=== PATIENT | female | born 1980 | race Caucasian/White ===

== ENCOUNTER 2017-05-27 16:23 | Emergency (ER) | payer MEDICARE, OTHER ==
[~2017-05-27] VITALS: Ht 165.1 cm; Wt 75.8 kg
[~2017-05-27 16:23] MED LIST: 5-Htp50 MG PO; ALAVERT; ALBU90I INH; ALBU90OI INH; AMIT10 PO; AMIT50 PO; AMOCLA500 PO; AMOCLA875 PO; AMOX1XR PO; AMOX250 PO; AMOX500 PO; ANTOXYBENA AU; ANTOXYBENA OT; ARIP20; ARIP20 PO; ATIVAN; AXERT; AZIT250 PO; AZIT500 PO; Amoxicillin500 MG PO; Ativan1 MG PO; BELPTAB PO; BENADRYL25 MG PO; BENTYL PO; BENZ100A PO; BUSP15 PO; BUTASPCAF PO; Bactrim Ds Tab1 EACH PO; Bentyl20 MG PO; CEPH500 PO; CETI10 PO; CHLO500 PO; CIME300 PO; CINNAMON PO; CIPR500 PO; CLAR500 PO; CLARITIN; CLIN300 PO; CLON.1 PO; CLON.2 PO; CLON1 PO; CLONIDINE PO; CRUTCH3 USE; CYAN500; CYCL10 PO; CYMBALTA; DIAZ5 PO; DIPATR PO; DOXY100 PO; DULO30 PO; DULO60 PO; FERR325 PO; FLUC150A PO; FLUT.05NI; Flonase 0.05% N16 GM; GABA100 PO; GABA300 PO; GUAPSEER PO; HYDACE5; HYDACE5 PO; HYDGUAL120 PO; HYDPAM25; HYDPAM25 PO; HYDPAM50 PO; HYOS.125 SL; Hair, Skin & N1 EACH PO; IBUP600 PO; IBUP800 PO; IRON; LANS30EC PO; LEVE500 PO; LITH300C PO; LITHIUM OROTATE PO; LOPE2C PO; LORA1 PO; MAGNESIUM; META800; META800 PO; METCAR500 PO; METCAR750; METF500 PO; METPHE20 PO; METPHE5 PO; METPRE4DP PO; MILN100T PO; MIRT30 PO; MOME.1TC TOP; MULVITA; MULVITMIND PO; MULVITMINE; MULVITMINF PO; MUPI2TC TOP; MUPI2TO TOP; NAPR500 PO; NAPR550 PO; NEOPOLHCSU OT; NITR100CA PO; NORETHTP; NUVA RING; NYST100TC TOP; Naprosyn500 MG PO; Nasonex17 GM; OLAN10; OLAN5; OLOP.1OPSO OD; ONDA4ODT MM; OXYACE5T PO; OXYC5; PARO20; PARO20 PO; PENVK500 PO; PHENA200 PO; PRAZ1 PO; PRAZ2 PO; PRED10 PO; PRED20 PO; PREG100 PO; PREG75 PO; PROACE100 PO; PROC10 PO; PROM25 PO; PROM25S PR; PROP10 PO; PSEU30 PO; Pseudoephedrine30 MG PO; RISP2 PO; RXANTBENOT AU; RXCLIN PO; RXCYCL10 PO; RXDIPATR PO; RXHYDACE PO; RXHYDGUAS PO; RXLORA1 PO; RXNAPNA550 PO; RXPHEN200 PO; RXPROM25 PO; RXTRAM50 PO; SACC250C PO; SERT100 PO; STOMUL PO; SUDOGEST SINUS1 EACH PO; SULTRIDS PO; TOPI100; TOPI100 PO; TOPI25; TRAM50 PO; TRAZ100; TRAZ100 PO; TRIA80TC TOP; Tylenol325 MG PO; VICODIN 5-3001 EACH PO; VIT; Vibramycin100 MG PO; ZIPR80 PO; ZOLM2.5 PO; ZOLP10 PO; ZOLP12.5 PO; ZOLP5 PO; Zanaflex4 MG PO; Zithromax250 MG PO; Zofran Odt4 MG PO; Zofran Odt4 MG SL; Zofran8 MG PO; [UNRECOGNIZED DRUG - CODE]; [UNRECOGNIZED DRUG - OTHER]; [UNRECOGNIZED DRUG - OTHER] INH; [UNRECOGNIZED DRUG - OTHER] PO
[2017-05-27 19:44] LABS: BASOPHILS ABSOLUTE AUTO 0.06 K/mm3 (0.00-0.23); BASOPHILS PERCENT AUTO 1 % (0-2); EOSINOPHILS ABSOLUTE AUTO 0.16 K/mm3 (0.00-0.68); EOSINOPHILS PERCENT AUTO 2 % (0-6); Hemoglobin 14.2 g/dL (11.5-16.0); IMMATURE GRAN ABSOLUTE AUTO 0.03 K/mm3 (0.00-0.10); IMMATURE GRAN PERCENT AUTO 0 % (0-1); LYMPHOCYTES ABSOLUTE AUTO 4.34 K/mm3 (0.84-5.20); LYMPHOCYTES PERCENT AUTO 40 % (21-46); MONOCYTES ABSOLUTE AUTO 0.61 K/mm3 (0.16-1.47); MONOCYTES PERCENT AUTO 6 % (4-13); Mean Corpuscular HGB 29.2 pg (26.0-34.0); Mean Corpuscular HGB Conc 34.6 g/dL (31.5-36.5); Mean Corpuscular Volume 84 fL (80-100); Mean Platelet Volume 10.1 fL (9.1-12.4); NEUTROPHILS ABSOLUTE AUTO 5.57 K/mm3 (1.96-9.15); NEUTROPHILS PERCENT AUTO 52 % (41-73); Platelet Count 305 K/mm3 (150-400); RDW Coefficient Variation 11.9 % (11.7-14.2); RDW Standard Deviation 35.9 fL (35.1-46.3); Red Blood Cell Count 4.87 M/mm3 (3.80-5.20); White Blood Cell Count 10.77 K/mm3 (4.00-11.30)
[2017-05-27 20:02] LABS: Alanine Aminotransfer (ALT/SGP 75 U/L (12-78); Albumin/Globulin Ratio 0.9 (0.8-1.8); Alk Phos 90 U/L (50-136); Anion Gap 14 mmol/L (6-16); Aspartate Aminotrans (AST/SGOT 49 U/L (12-37); Bilirubin, Total 0.6 mg/dL (0.1-1.0); Blood Urea Nitrogen 13 mg/dL (8-24); Bun/Creatinine Ratio 25.4 (12.0-20.0); CO2, Blood 20 mmol/L (21-32); Calcium, Blood 9.8 mg/dL (8.5-10.1); Chloride, Blood 102 mmol/L (98-108); Creatinine, Blood 0.51 mg/dL (0.40-1.00); Globulin, Blood 4.6 g/dL (2.2-4.0); Glomerular Filtration Rate >60 (60-); Glucose, Blood 300 mg/dL (70-99); Potassium, Blood 3.9 mmol/L (3.5-5.5); Sodium, Blood 136 mmol/L (136-145); Total Protein, Blood 8.6 g/dL (6.4-8.2)
[2017-05-27] MEDS ORDERED: INSULANPEN SC (20:42)
[2017-05-27] MEDS ORDERED: Hydroxyzine HCl50 MG PO (20:43)
[2017-05-27] MEDS ORDERED: TIZANIDINE HCL4 MG PO (20:44)
[2017-05-27] MEDS ORDERED: GABA100 PO (20:45)
[2017-05-27] MEDS ORDERED: METPHE20 PO (20:45)
[2017-08-12] MEDS ORDERED: METF500 (22:27)
== END 2017-05-27 23:34 | disposition home or self-care (01) ==
LOC: ER 16:23
PROVIDERS: Physician Assistant
DX: J11.1 Influenza due to unidentified influenza virus with other respiratory manifestations (principal); R73.9 Hyperglycemia, unspecified; G40.909 Epilepsy, unspecified, not intractable, without status epilepticus; F43.10 Post-traumatic stress disorder, unspecified; Z86.14 Personal history of Methicillin resistant Staphylococcus aureus infection; Z79.4 Long term (current) use of insulin; Z91.018 Allergy to other foods; Z88.8 Allergy status to other drugs, medicaments and biological substances; Z79.899 Other long term (current) drug therapy; Z87.891 Personal history of nicotine dependence; Z98.890 Other specified postprocedural states
CPT/HCPCS: 71046; 80053; 85025; 99283

== ENCOUNTER 2018-04-23 19:00 | Emergency (ER) | payer MEDICARE, OTHER ==
[~2018-04-23] VITALS: Ht 165.1 cm; Wt 78.0 kg
[~2018-04-23 19:00] MED LIST changes: +Hydroxyzine HCl50 MG PO; +INSULANPEN SC; +METF500; +TIZANIDINE HCL4 MG PO
[2018-04-23] MEDS ORDERED: ALBU90OI INH (21:59)
== END 2018-04-23 22:13 | disposition home or self-care (01) ==
LOC: ER 19:00
DX: J45.901 Unspecified asthma with (acute) exacerbation (principal); Z88.8 Allergy status to other drugs, medicaments and biological substances; Z79.899 Other long term (current) drug therapy; Z79.4 Long term (current) use of insulin; F43.10 Post-traumatic stress disorder, unspecified; G40.909 Epilepsy, unspecified, not intractable, without status epilepticus; Z87.891 Personal history of nicotine dependence
CPT/HCPCS: 99283

== ENCOUNTER 2018-07-07 16:23 | Emergency (ER) | payer MEDICARE, OTHER ==
[~2018-07-07] VITALS: Ht 165.1 cm; Wt 81.7 kg
[2018-07-07 16:56] LABS: BASOPHILS ABSOLUTE AUTO 0.06 K/mm3 (0.00-0.23); BASOPHILS PERCENT AUTO 1 % (0-2); EOSINOPHILS ABSOLUTE AUTO 0.15 K/mm3 (0.00-0.68); EOSINOPHILS PERCENT AUTO 1 % (0-6); Hematocrit 42.5 % (33.0-51.0); Hemoglobin 14.3 g/dL (11.5-16.0); IMMATURE GRAN ABSOLUTE AUTO 0.02 K/mm3 (0.00-0.10); IMMATURE GRAN PERCENT AUTO 0 % (0-1); LYMPHOCYTES ABSOLUTE AUTO 5.31 K/mm3 (0.84-5.20); LYMPHOCYTES PERCENT AUTO 47 % (21-46); MONOCYTES ABSOLUTE AUTO 0.51 K/mm3 (0.16-1.47); MONOCYTES PERCENT AUTO 5 % (4-13); Mean Corpuscular HGB 29.2 pg (26.0-34.0); Mean Corpuscular HGB Conc 33.6 g/dL (31.5-36.5); Mean Corpuscular Volume 87 fL (80-100); NEUTROPHILS ABSOLUTE AUTO 5.36 K/mm3 (1.96-9.15); NEUTROPHILS PERCENT AUTO 47 % (41-73); Platelet Count 370 K/mm3 (150-400); RDW Coefficient Variation 11.5 % (11.7-14.2); RDW Standard Deviation 36.2 fL (35.1-46.3); White Blood Cell Count 11.41 K/mm3 (4.00-11.30)
[2018-07-07 17:15] LABS: Alanine Aminotransfer (ALT/SGP 67 U/L (12-78); Albumin, Blood 4.2 g/dL (3.4-5.0); Albumin/Globulin Ratio 0.9 (0.8-1.8); Alk Phos 87 U/L (50-136); Anion Gap 7 mmol/L (6-16); Aspartate Aminotrans (AST/SGOT 43 U/L (12-37); Bilirubin, Total 0.7 mg/dL (0.1-1.0); Blood Urea Nitrogen 17 mg/dL (8-24); Bun/Creatinine Ratio 23.2 (12.0-20.0); CO2, Blood 23 mmol/L (21-32); Calcium, Blood 9.8 mg/dL (8.5-10.1); Chloride, Blood 108 mmol/L (98-108); Creatinine, Blood 0.73 mg/dL (0.40-1.00); Globulin, Blood 4.5 g/dL (2.2-4.0); Glomerular Filtration Rate >60 (60-); Glucose, Blood 132 mg/dL (70-99); Potassium, Blood 3.4 mmol/L (3.5-5.5); Sodium, Blood 138 mmol/L (136-145); Total Protein, Blood 8.7 g/dL (6.4-8.2)
[2018-07-07 18:08] LABS: Source, Urine Clean Catch
[2018-07-07 18:16] LABS: Bilirubin, Urine Neg (Neg); Blood, Urine Neg (Neg); Glucose Qualitative, Urine Neg (Neg); Ketones, Urine Neg (Neg); Leukocyte Esterase, Urine 1+ (Neg); Nitrite, Urine Neg (Neg); Protein, Urine Neg (Neg); Urobilinogen, Urine NORM (Normal)
[2018-07-07 18:27] LABS: Appearance, Urine Clear (Clear); Color, Urine Yellow (P-Yellow)
[2018-07-07 18:28] LABS: Bacteria Few /hpf; Red Blood Cells, Urine Not Seen /hpf (0-2); Squamous Epithelial Cells Few /hpf (Few)
[2018-07-07] MEDS ORDERED: TOPI50 PO ×2 (19:16)
[2018-07-07] MEDS ORDERED: Naltrexone HCl50 MG PO (19:17)
[2018-07-07] MEDS ORDERED: SLIDING SCALE INSULI (19:18)
== END 2018-07-07 20:10 | disposition home or self-care (01) ==
LOC: ER 16:23
PROVIDERS: Emergency Medicine
DX: K90.0 Celiac disease (principal); Z88.8 Allergy status to other drugs, medicaments and biological substances; Z91.018 Allergy to other foods; Z79.899 Other long term (current) drug therapy; Z79.4 Long term (current) use of insulin; F43.10 Post-traumatic stress disorder, unspecified; G40.909 Epilepsy, unspecified, not intractable, without status epilepticus; Z87.891 Personal history of nicotine dependence
CPT/HCPCS: 36415; 76830; 76856; 80053; 81001; 81025; 83690; 85025; 87086; 96374; 96375; 99284-25; J1885; J3010

== ENCOUNTER 2018-09-01 14:51 | Emergency (ER) | payer MEDICARE, OTHER ==
[~2018-09-01] VITALS: Ht 165.1 cm; Wt 82.0 kg
[~2018-09-01 14:51] MED LIST changes: +Naltrexone HCl50 MG PO; +SLIDING SCALE INSULI; +TOPI50 PO
[2018-09-01] MEDS ORDERED: Bactrim Ds Tab1 EACH PO (16:11)
[2018-09-01] MEDS ORDERED: CEPH500 PO (16:11)
== END 2018-09-01 16:21 | disposition home or self-care (01) ==
LOC: ER 14:51
DX: L02.31 Cutaneous abscess of buttock (principal); G40.909 Epilepsy, unspecified, not intractable, without status epilepticus; Z87.891 Personal history of nicotine dependence
CPT/HCPCS: 99283

== ENCOUNTER 2018-09-12 19:17 | Emergency (ER) | payer OTHER, MEDICARE ==
[~2018-09-12] VITALS: Ht 165.1 cm; Wt 79.4 kg
[2018-09-12] MEDS ORDERED: HYDPAM25 PO (19:56)
[2018-09-12] MEDS ORDERED: RIZATRIPTAN10 M2 PO (19:57)
== END 2018-09-12 22:00 | disposition home or self-care (01) ==
LOC: ER 19:17
DX: R51 Headache (principal); M54.2 Cervicalgia; V43.52XA Car driver injured in collision with other type car in traffic accident, initial encounter; Z91.018 Allergy to other foods; Z88.8 Allergy status to other drugs, medicaments and biological substances; Z79.899 Other long term (current) drug therapy; Z79.4 Long term (current) use of insulin; F43.10 Post-traumatic stress disorder, unspecified; G40.909 Epilepsy, unspecified, not intractable, without status epilepticus; Z87.891 Personal history of nicotine dependence
CPT/HCPCS: 96361; 96374; 96375; 99284-25; J1200; J2765; J7030

== ENCOUNTER 2019-04-13 10:56 | Emergency (ER) | payer MEDICARE, OTHER ==
[~2019-04-13] VITALS: Ht 165.1 cm; Wt 81.7 kg
[~2019-04-13 10:56] MED LIST changes: +RIZATRIPTAN10 M2 PO
[2019-04-13] MEDS ORDERED: FLUT1DIS2 INH (11:13)
[2019-04-13] MEDS ORDERED: NOVOLOG FL100 UNIT/1 SC (11:14)
[2019-04-13] MEDS ORDERED: Nuvaring Vagin1 EACH VAG (11:15)
[2019-04-13] MEDS ORDERED: Zolpidem Tartrat5 MG PO (11:15)
[2019-04-13] MEDS ORDERED: JARDIANCE25 MG PO (11:16)
[2019-04-13] MEDS ORDERED: AMLODIPINE BESYL5 MG PO (11:16)
[2019-04-13] MEDS ORDERED: Flovent 110 MCG12 GM INH (11:17)
[2019-04-13] MEDS ORDERED: Sudogest60 MG PO (13:16)
== END 2019-04-13 13:30 | disposition home or self-care (01) ==
LOC: ER 10:56
DX: J06.9 Acute upper respiratory infection, unspecified (principal); F43.10 Post-traumatic stress disorder, unspecified; G40.909 Epilepsy, unspecified, not intractable, without status epilepticus; J45.909 Unspecified asthma, uncomplicated; E11.9 Type 2 diabetes mellitus without complications; Z87.891 Personal history of nicotine dependence; Z88.8 Allergy status to other drugs, medicaments and biological substances; Z91.018 Allergy to other foods; Z79.899 Other long term (current) drug therapy; Z79.4 Long term (current) use of insulin
CPT/HCPCS: 71046; 94640; 99283-25

== ENCOUNTER 2019-05-07 08:42 | Emergency (ER) | payer MEDICARE, OTHER ==
[~2019-05-07] VITALS: Ht 165.1 cm; Wt 78.9 kg
[~2019-05-07 08:42] MED LIST changes: +AMLODIPINE BESYL5 MG PO; +FLUT1DIS2 INH; +Flovent 110 MCG12 GM INH; +JARDIANCE25 MG PO; +NOVOLOG FL100 UNIT/1 SC; +Nuvaring Vagin1 EACH VAG; +Sudogest60 MG PO; +Zolpidem Tartrat5 MG PO
[2019-05-07] MEDS ORDERED: BREO ELLIPTA 21 EACH (09:08)
[2019-05-07 09:18] LABS: Source, Urine Clean Catch
[2019-05-07 09:24] LABS: Bilirubin, Urine Neg (Neg); Blood, Urine Neg (Neg); Glucose Qualitative, Urine 4+ (Neg); Ketones, Urine Neg (Neg); Leukocyte Esterase, Urine 1+ (Neg); Nitrite, Urine Pos (Neg); Protein, Urine Neg (Neg); Specific Gravity, Urine 1.005 (1.003-1.022); Urobilinogen, Urine NORM (Normal)
[2019-05-07 09:29] LABS: Color, Urine Yellow (P-Yellow)
[2019-05-07 09:30] LABS: Appearance, Urine Hazy (Clear)
[2019-05-07 09:31] LABS: Red Blood Cells, Urine 0-2 /hpf (0-2)
[2019-05-07 09:32] LABS: Bacteria Mod /hpf; Squamous Epithelial Cells Few /hpf (Few)
[2019-05-07] MEDS ORDERED: Pyridium200 MG PO (10:09)
[2019-05-07] MEDS ORDERED: Macrobid 100 M100 MG PO (10:09)
== END 2019-05-07 10:14 | disposition home or self-care (01) ==
LOC: ER 08:42
PROVIDERS: Physician Assistant
DX: N39.0 Urinary tract infection, site not specified (principal); G40.909 Epilepsy, unspecified, not intractable, without status epilepticus; J45.909 Unspecified asthma, uncomplicated; E11.9 Type 2 diabetes mellitus without complications; Z87.891 Personal history of nicotine dependence; Z91.018 Allergy to other foods; Z91.011 Allergy to milk products; Z88.8 Allergy status to other drugs, medicaments and biological substances; Z79.899 Other long term (current) drug therapy; Z79.4 Long term (current) use of insulin
CPT/HCPCS: 81001; 81025; 87086; 99283

== ENCOUNTER 2019-09-06 10:05 | Emergency (ER) | payer MEDICARE, OTHER ==
[~2019-09-06] VITALS: Ht 165.1 cm; Wt 78.9 kg
[~2019-09-06 10:05] MED LIST changes: +BREO ELLIPTA 21 EACH; +Macrobid 100 M100 MG PO; +Pyridium200 MG PO
== END 2019-09-06 12:27 | disposition home or self-care (01) ==
LOC: ER 10:05
DX: M25.511 Pain in right shoulder (principal); E11.9 Type 2 diabetes mellitus without complications; G40.909 Epilepsy, unspecified, not intractable, without status epilepticus; Z91.018 Allergy to other foods; Z91.011 Allergy to milk products; Z88.8 Allergy status to other drugs, medicaments and biological substances; Z79.899 Other long term (current) drug therapy; Z79.4 Long term (current) use of insulin; Z87.891 Personal history of nicotine dependence
CPT/HCPCS: 73030; 99283-25

== ENCOUNTER 2020-02-04 09:05 | Emergency (ER) | payer MEDICARE, OTHER ==
[~2020-02-04] VITALS: Ht 165.1 cm; Wt 78.0 kg
[~2020-02-04 09:05] MED LIST changes: +KEFLEX250 M1 PO
[2020-02-04] MEDS ORDERED: Bactrim Ds Tab1 EACH PO (09:19)
[2020-02-04 09:34] LABS: Source, Urine Clean Catch
[2020-02-04 09:37] LABS: Appearance, Urine Clear (Clear); Blood, Urine Neg (Neg); Color, Urine Yellow (P-Yellow); Glucose Qualitative, Urine 4+ (Neg); Ketones, Urine Neg (Neg); Leukocyte Esterase, Urine 1+ (Neg); Nitrite, Urine Pos (Neg); Protein, Urine Neg (Neg); Urobilinogen, Urine 1+ (Normal)
[2020-02-04 10:10] LABS: Bilirubin, Urine 1+ (Neg)
[2020-02-04 10:11] LABS: Red Blood Cells, Urine 0-2 /hpf (0-2); Squamous Epithelial Cells Rare /hpf (Few)
[2020-02-04 10:12] LABS: Bacteria Few /hpf
== END 2020-02-04 09:30 | disposition home or self-care (01) ==
LOC: ER 09:05
PROVIDERS: Emergency Medicine
DX: N39.0 Urinary tract infection, site not specified (principal); G40.909 Epilepsy, unspecified, not intractable, without status epilepticus; J45.909 Unspecified asthma, uncomplicated; Z87.891 Personal history of nicotine dependence; Z79.899 Other long term (current) drug therapy; Z79.4 Long term (current) use of insulin; Z79.3 Long term (current) use of hormonal contraceptives; Z91.02 Food additives allergy status; Z88.8 Allergy status to other drugs, medicaments and biological substances
CPT/HCPCS: 81001; 87086; 99283; A9270-GY

== ENCOUNTER 2021-03-11 07:20 | Emergency (ER) | payer MEDICARE, OTHER ==
[~2021-03-11] VITALS: Ht 165.1 cm; Wt 68.0 kg
[2021-03-11 08:50] LABS: Source, Urine Clean Catch
[2021-03-11 08:53] LABS: Appearance, Urine Clear (Clear); Bilirubin, Urine Neg (Neg); Blood, Urine 5+ (Neg); Color, Urine Yellow (P-Yellow); Glucose Qualitative, Urine 4+ (Neg); Ketones, Urine Neg (Neg); Leukocyte Esterase, Urine 3+ (Neg); Nitrite, Urine Neg (Neg); Protein, Urine 3+ (Neg); Urobilinogen, Urine NORM (Normal)
[2021-03-11 08:56] LABS: BASOPHILS ABSOLUTE AUTO 0.07 K/mm3 (0.00-0.23); BASOPHILS PERCENT AUTO 1 % (0-2); EOSINOPHILS PERCENT AUTO 2 % (0-6); Hematocrit 44.3 % (33.0-51.0); Hemoglobin 14.7 g/dL (11.5-16.0); IMMATURE GRAN ABSOLUTE AUTO 0.03 K/mm3 (0.00-0.10); IMMATURE GRAN PERCENT AUTO 0 % (0-1); LYMPHOCYTES ABSOLUTE AUTO 3.62 K/mm3 (0.84-5.20); LYMPHOCYTES PERCENT AUTO 31 % (21-46); MONOCYTES ABSOLUTE AUTO 0.73 K/mm3 (0.16-1.47); MONOCYTES PERCENT AUTO 6 % (4-13); Mean Corpuscular HGB 28.5 pg (26.0-34.0); Mean Corpuscular HGB Conc 33.2 g/dL (31.5-36.5); Mean Corpuscular Volume 86 fL (80-100); Mean Platelet Volume 9.9 fL (9.1-12.4); NEUTROPHILS ABSOLUTE AUTO 6.88 K/mm3 (1.96-9.15); NEUTROPHILS PERCENT AUTO 60 % (41-73); Platelet Count 313 K/mm3 (150-400); RDW Coefficient Variation 12.1 % (11.7-14.2); RDW Standard Deviation 38.4 fL (35.1-46.3); Red Blood Cell Count 5.15 M/mm3 (3.80-5.20); White Blood Cell Count 11.53 K/mm3 (4.00-11.30)
[2021-03-11 09:09] LABS: Alanine Aminotransfer (ALT/SGP 21 U/L (12-78); Alk Phos 71 U/L (50-136); Anion Gap 8 mmol/L (6-16); Aspartate Aminotrans (AST/SGOT 14 U/L (12-37); Bilirubin, Direct <0.1 mg/dL (0.0-0.3); Bilirubin, Indirect Unable to Calculate mg/dL (0.1-0.7); Bilirubin, Total 0.3 mg/dL (0.1-1.0); Blood Urea Nitrogen 18 mg/dL (8-24); Bun/Creatinine Ratio 21.1 (12.0-20.0); CO2, Blood 24 mmol/L (21-32); Calcium, Blood 9.5 mg/dL (8.5-10.1); Chloride, Blood 109 mmol/L (98-108); Creatinine, Blood 0.85 mg/dL (0.40-1.00); Globulin, Blood 4.2 g/dL (2.2-4.0); Glomerular Filtration Rate >60 (60-); Glucose, Blood 133 mg/dL (70-99); Potassium, Blood 3.8 mmol/L (3.5-5.5); Sodium, Blood 141 mmol/L (136-145); Total Protein, Blood 8.2 g/dL (6.4-8.2)
[2021-03-11 09:10] LABS: Amorphous Light (0-Heavy); Bacteria Mod /hpf; Red Blood Cells, Urine 50-100 /hpf (0-2); Squamous Epithelial Cells Many /hpf (Few)
[2021-03-11] MEDS ORDERED: CEFU500T30 PO (10:39)
[2021-03-11] MEDS ORDERED: ONDA4 PO (10:39)
== END 2021-03-11 11:08 | disposition home or self-care (01) ==
LOC: ER 07:20
PROVIDERS: Student in an Organized Health Care Education/Training Program
DX: N12 Tubulo-interstitial nephritis, not specified as acute or chronic (principal); N30.91 Cystitis, unspecified with hematuria; Z88.8 Allergy status to other drugs, medicaments and biological substances; Z79.899 Other long term (current) drug therapy; Z91.018 Allergy to other foods; Z79.4 Long term (current) use of insulin; F43.10 Post-traumatic stress disorder, unspecified; G40.909 Epilepsy, unspecified, not intractable, without status epilepticus; Z87.891 Personal history of nicotine dependence
CPT/HCPCS: 36415; 74176; 80048; 80076; 81001; 81025; 83690; 85025; 87086; 96365; 96375; 99284-25; J0696; J1885; J2405; J7030

== ENCOUNTER 2021-08-26 13:01 | Emergency (ER) | payer MEDICARE, OTHER ==
[~2021-08-26] VITALS: Ht 172.7 cm; Wt 79.4 kg
[~2021-08-26 13:01] MED LIST changes: +BREO ELLIPTA 21 EAC1 IH; +CEFU500T30 PO; +METOCLOPRAMIDE H PO; +ONDA4 PO
== END 2021-08-26 13:38 | disposition home or self-care (01) ==
LOC: ER 13:01
DX: Z02.89 Encounter for other administrative examinations (principal); S00.33XA Contusion of nose, initial encounter; Y35.813A Legal intervention involving manhandling, suspect injured, initial encounter; J45.909 Unspecified asthma, uncomplicated; G40.909 Epilepsy, unspecified, not intractable, without status epilepticus; Z88.8 Allergy status to other drugs, medicaments and biological substances; Z91.018 Allergy to other foods; Z87.891 Personal history of nicotine dependence
CPT/HCPCS: 80074; 86708; 87389; 99284

== ENCOUNTER 2021-11-08 06:41 | Emergency (ER) | payer MEDICARE, OTHER ==
[~2021-11-08] VITALS: Ht 165.1 cm; Wt 74.8 kg
[~2021-11-08 06:41] MED LIST changes: -NOVOLOG FL100 UNIT/1 SC; +NOVOLOG FL100 UNIT/3
[2021-11-08] MEDS ORDERED: TIZA4 (07:49)
[2021-11-08] MEDS ORDERED: AIMOVIG AU140 MG/1 M (07:49)
[2021-11-08] MEDS ORDERED: ASPI325 PO (07:49)
[2021-11-08] MEDS ORDERED: ALBU8HFA2 (07:49)
[2021-11-08] MEDS ORDERED: BUDESONIDE1 MG/2 M1 (07:49)
== END 2021-11-08 09:45 | disposition home or self-care (01) ==
LOC: ER 06:41
DX: U07.1 COVID-19 (principal); Z87.891 Personal history of nicotine dependence; Z79.4 Long term (current) use of insulin; Z79.899 Other long term (current) drug therapy; Z79.82 Long term (current) use of aspirin
CPT/HCPCS: 99284-25; M0222

== ENCOUNTER 2022-06-04 19:08 | Emergency (ER) | payer MEDICARE, OTHER ==
[~2022-06-04] VITALS: Ht 165.1 cm; Wt 70.3 kg
[~2022-06-04 19:08] MED LIST changes: +AIMOVIG AU140 MG/1 M; +ALBU8HFA2; +ASPI325 PO; +BUDESONIDE1 MG/2 M1; +METO5A PO; -METOCLOPRAMIDE H PO; -RIZATRIPTAN10 M2 PO; +RIZATRIPTAN10 MG SL; +TIZA4
[2022-06-04] MEDS ORDERED: ERYT.5TO LEFTEYE (22:29)
== END 2022-06-04 22:53 | disposition home or self-care (01) ==
LOC: ER 19:08
DX: J40 Bronchitis, not specified as acute or chronic (principal); H10.9 Unspecified conjunctivitis; Z79.4 Long term (current) use of insulin; Z79.899 Other long term (current) drug therapy; Z88.8 Allergy status to other drugs, medicaments and biological substances; Z91.02 Food additives allergy status; Z79.82 Long term (current) use of aspirin; Z87.891 Personal history of nicotine dependence
CPT/HCPCS: 99283; A9270

== ENCOUNTER 2022-06-28 19:48 | Emergency (ER) | payer MEDICARE, OTHER ==
[~2022-06-28] VITALS: Ht 165.1 cm; Wt 75.6 kg
[~2022-06-28 19:48] MED LIST changes: +ERYT.5TO LEFTEYE
[2022-06-28] MEDS ORDERED: LEVE500 PO (21:26)
== END 2022-06-28 21:38 | disposition home or self-care (01) ==
LOC: ER 19:48
DX: O99.891 Other specified diseases and conditions complicating pregnancy (principal); O99.511 Diseases of the respiratory system complicating pregnancy, first trimester; R55 Syncope and collapse; R56.9 Unspecified convulsions; J45.909 Unspecified asthma, uncomplicated; Z3A.00 Weeks of gestation of pregnancy not specified; Z91.02 Food additives allergy status; Z88.8 Allergy status to other drugs, medicaments and biological substances; Z79.4 Long term (current) use of insulin; Z79.899 Other long term (current) drug therapy; Z79.82 Long term (current) use of aspirin; Z87.891 Personal history of nicotine dependence
CPT/HCPCS: A9270

== ENCOUNTER 2022-08-27 07:19 | Emergency (ER) | payer MEDICARE, OTHER ==
[~2022-08-27] VITALS: Ht 165.1 cm; Wt 77.1 kg
[2022-08-27 07:36] VITALS: BP 139/86
== END 2022-08-27 10:00 | disposition home or self-care (01) ==
LOC: ER 07:19
DX: O99.891 Other specified diseases and conditions complicating pregnancy (principal); R51.9 Headache, unspecified; O99.353 Diseases of the nervous system complicating pregnancy, third trimester; G40.909 Epilepsy, unspecified, not intractable, without status epilepticus; O99.513 Diseases of the respiratory system complicating pregnancy, third trimester; J45.909 Unspecified asthma, uncomplicated; Z91.018 Allergy to other foods; Z88.8 Allergy status to other drugs, medicaments and biological substances; Z88.6 Allergy status to analgesic agent; Z79.899 Other long term (current) drug therapy; Z87.891 Personal history of nicotine dependence; Z3A.30 30 weeks gestation of pregnancy
CPT/HCPCS: 99283

== ENCOUNTER 2022-11-20 08:46 | Emergency (ER) | payer MEDICARE, OTHER ==
[~2022-11-20] VITALS: Ht 165.1 cm; Wt 69.0 kg
[2022-11-20 09:59] LABS: BASOPHILS PERCENT AUTO 1 % (0-2); EOSINOPHILS ABSOLUTE AUTO 0.47 K/mm3 (0.00-0.68); EOSINOPHILS PERCENT AUTO 6 % (0-6); Hematocrit 41.5 % (33.0-51.0); Hemoglobin 14.1 g/dL (11.5-16.0); IMMATURE GRAN ABSOLUTE AUTO 0.01 K/mm3 (0.00-0.10); IMMATURE GRAN PERCENT AUTO 0 % (0-1); LYMPHOCYTES ABSOLUTE AUTO 2.99 K/mm3 (0.84-5.20); LYMPHOCYTES PERCENT AUTO 40 % (21-46); MONOCYTES ABSOLUTE AUTO 0.58 K/mm3 (0.16-1.47); MONOCYTES PERCENT AUTO 8 % (4-13); Mean Corpuscular Volume 85 fL (80-100); Mean Platelet Volume 9.8 fL (9.1-12.4); NEUTROPHILS ABSOLUTE AUTO 3.34 K/mm3 (1.96-9.15); NEUTROPHILS PERCENT AUTO 45 % (41-73); Platelet Count 329 K/mm3 (150-400); RDW Standard Deviation 37.3 fL (35.1-46.3); Red Blood Cell Count 4.87 M/mm3 (3.80-5.20); White Blood Cell Count 7.49 K/mm3 (4.00-11.30)
[2022-11-20 10:18] LABS: Albumin, Blood 4.2 g/dL (3.4-5.0); Bilirubin, Total 1.2 mg/dL (0.1-1.0); Bun/Creatinine Ratio 22.5 (12.0-20.0); Creatinine, Blood 0.76 mg/dL (0.40-1.00); Globulin, Blood 4.2 g/dL (2.2-4.0); Potassium, Blood 3.9 mmol/L (3.5-5.5); Total Protein, Blood 8.4 g/dL (6.4-8.2)
[2022-11-20 11:30] VITALS: BP 127/102
== END 2022-11-20 12:05 | disposition home or self-care (01) ==
LOC: ER 08:46
PROVIDERS: Physician Assistant
DX: R00.2 Palpitations (principal); R07.89 Other chest pain; J45.909 Unspecified asthma, uncomplicated; Z88.8 Allergy status to other drugs, medicaments and biological substances; Z91.018 Allergy to other foods; Z79.51 Long term (current) use of inhaled steroids; Z79.899 Other long term (current) drug therapy; Z87.891 Personal history of nicotine dependence
CPT/HCPCS: 71046; 80053; 84484; 85025; 93005; 93010; 93246; 99285-25

== ENCOUNTER 2022-12-25 16:01 | Emergency (ER) | payer MEDICARE, OTHER ==
[~2022-12-25] VITALS: Ht 165.1 cm; Wt 72.6 kg
[2022-12-25 16:47] LABS: BASOPHILS ABSOLUTE AUTO 0.07 K/mm3 (0.00-0.23); BASOPHILS PERCENT AUTO 1 % (0-2); EOSINOPHILS ABSOLUTE AUTO 0.32 K/mm3 (0.00-0.68); EOSINOPHILS PERCENT AUTO 4 % (0-6); Hematocrit 40.4 % (33.0-51.0); Hemoglobin 13.8 g/dL (11.5-16.0); IMMATURE GRAN ABSOLUTE AUTO 0.01 K/mm3 (0.00-0.10); IMMATURE GRAN PERCENT AUTO 0 % (0-1); LYMPHOCYTES ABSOLUTE AUTO 3.52 K/mm3 (0.84-5.20); LYMPHOCYTES PERCENT AUTO 42 % (21-46); MONOCYTES ABSOLUTE AUTO 0.51 K/mm3 (0.16-1.47); MONOCYTES PERCENT AUTO 6 % (4-13); Mean Corpuscular HGB 28.9 pg (26.0-34.0); Mean Corpuscular HGB Conc 34.2 g/dL (31.5-36.5); Mean Corpuscular Volume 85 fL (80-100); Mean Platelet Volume 9.7 fL (9.1-12.4); NEUTROPHILS ABSOLUTE AUTO 3.95 K/mm3 (1.96-9.15); NEUTROPHILS PERCENT AUTO 47 % (41-73); Platelet Count 321 K/mm3 (150-400); RDW Standard Deviation 36.9 fL (35.1-46.3); Red Blood Cell Count 4.77 M/mm3 (3.80-5.20); White Blood Cell Count 8.38 K/mm3 (4.00-11.30)
[2022-12-25 17:40] VITALS: BP 125/80
== END 2022-12-25 18:21 | disposition home or self-care (01) ==
LOC: ER 16:01
PROVIDERS: Physician Assistant
DX: R53.83 Other fatigue (principal); Z88.8 Allergy status to other drugs, medicaments and biological substances; Z88.1 Allergy status to other antibiotic agents; Z79.899 Other long term (current) drug therapy; Z79.4 Long term (current) use of insulin; F43.10 Post-traumatic stress disorder, unspecified; G40.909 Epilepsy, unspecified, not intractable, without status epilepticus; J45.909 Unspecified asthma, uncomplicated; Z87.891 Personal history of nicotine dependence
CPT/HCPCS: 84703; 85025; 99284

== ENCOUNTER 2023-03-25 12:13 | Emergency (ER) | payer MEDICARE, OTHER ==
[~2023-03-25] VITALS: Ht 165.1 cm; Wt 68.0 kg
[2023-03-25 12:24] VITALS: BP 126/84
[2023-03-25 13:28] LABS: BASOPHILS ABSOLUTE AUTO 0.09 K/mm3 (0.00-0.23); BASOPHILS PERCENT AUTO 1 % (0-2); EOSINOPHILS ABSOLUTE AUTO 0.52 K/mm3 (0.00-0.68); EOSINOPHILS PERCENT AUTO 6 % (0-6); Hematocrit 41.6 % (33.0-51.0); Hemoglobin 14.2 g/dL (11.5-16.0); IMMATURE GRAN ABSOLUTE AUTO 0.01 K/mm3 (0.00-0.10); IMMATURE GRAN PERCENT AUTO 0 % (0-1); LYMPHOCYTES ABSOLUTE AUTO 3.18 K/mm3 (0.84-5.20); LYMPHOCYTES PERCENT AUTO 35 % (21-46); MONOCYTES ABSOLUTE AUTO 0.46 K/mm3 (0.16-1.47); MONOCYTES PERCENT AUTO 5 % (4-13); Mean Corpuscular HGB 29.3 pg (26.0-34.0); Mean Corpuscular HGB Conc 34.1 g/dL (31.5-36.5); Mean Corpuscular Volume 86 fL (80-100); Mean Platelet Volume 9.8 fL (9.1-12.4); NEUTROPHILS PERCENT AUTO 54 % (41-73); Platelet Count 303 K/mm3 (150-400); RDW Coefficient Variation 12.1 % (11.7-14.2); RDW Standard Deviation 37.9 fL (35.1-46.3); Red Blood Cell Count 4.85 M/mm3 (3.80-5.20); White Blood Cell Count 9.16 K/mm3 (4.00-11.30)
[2023-03-25 13:56] LABS: Albumin/Globulin Ratio 0.9 (0.8-1.8); Bilirubin, Total 0.6 mg/dL (0.1-1.0); Calcium, Blood 9.2 mg/dL (8.5-10.1); Creatinine, Blood 0.57 mg/dL (0.40-1.00); Globulin, Blood 4.7 g/dL (2.2-4.0); Magnesium, Blood 2.1 mg/dL (1.6-2.4); Potassium, Blood 4.2 mmol/L (3.5-5.5); Total Protein, Blood 8.7 g/dL (6.4-8.2)
== END 2023-03-25 14:43 | disposition home or self-care (01) ==
LOC: ER 12:13
PROVIDERS: Physician Assistant
DX: E11.649 Type 2 diabetes mellitus with hypoglycemia without coma (principal); G40.909 Epilepsy, unspecified, not intractable, without status epilepticus; J45.909 Unspecified asthma, uncomplicated; F43.10 Post-traumatic stress disorder, unspecified; Z87.891 Personal history of nicotine dependence; Z79.4 Long term (current) use of insulin; Z79.899 Other long term (current) drug therapy; Z88.8 Allergy status to other drugs, medicaments and biological substances; Z91.018 Allergy to other foods
CPT/HCPCS: 80053; 82947; 83735; 85025; 99283

== ENCOUNTER 2023-04-06 15:39 | Emergency (ER) | payer MEDICARE, OTHER ==
[~2023-04-06] VITALS: Ht 165.1 cm; Wt 68.0 kg
[2023-04-06 16:06] VITALS: BP 123/85
[2023-04-06] MEDS ORDERED: PENVK500 PO (16:08)
== END 2023-04-06 16:10 | disposition home or self-care (01) ==
LOC: ER 15:39
DX: K04.7 Periapical abscess without sinus (principal); G40.909 Epilepsy, unspecified, not intractable, without status epilepticus; J45.909 Unspecified asthma, uncomplicated; Z86.14 Personal history of Methicillin resistant Staphylococcus aureus infection; F43.10 Post-traumatic stress disorder, unspecified; Z87.891 Personal history of nicotine dependence; Z79.4 Long term (current) use of insulin; Z79.899 Other long term (current) drug therapy; Z88.8 Allergy status to other drugs, medicaments and biological substances; Z91.018 Allergy to other foods
CPT/HCPCS: 99282

== ENCOUNTER 2024-06-15 19:51 | Emergency (ER) | payer MEDICARE, OTHER ==
[~2024-06-15] VITALS: Ht 165.1 cm; Wt 74.8 kg
[2024-06-15 20:07] VITALS: BP 134/84
== END 2024-06-15 20:20 | disposition home or self-care (01) ==
LOC: ER 19:51
DX: R05.9 Cough, unspecified (principal); J45.909 Unspecified asthma, uncomplicated; Z91.018 Allergy to other foods; Z88.8 Allergy status to other drugs, medicaments and biological substances; Z88.9 Allergy status to unspecified drugs, medicaments and biological substances; Z79.4 Long term (current) use of insulin; Z79.51 Long term (current) use of inhaled steroids; Z79.899 Other long term (current) drug therapy; Z16.11 Resistance to penicillins
CPT/HCPCS: 99282

== ENCOUNTER 2024-10-25 13:56 | Emergency (ER) | payer MEDICARE, OTHER ==
[~2024-10-25] VITALS: Ht 165.1 cm; Wt 72.6 kg
[2024-10-25] MEDS ORDERED: Ipratropium/Albuterol SulF 2.5-0.5MG/3 ML Amp INH PRN (14:10)
[2024-10-25 14:25] LABS: BASOPHILS ABSOLUTE AUTO 0.11 K/mm3 (0.00-0.23); BASOPHILS PERCENT AUTO 1 % (0-2); EOSINOPHILS ABSOLUTE AUTO 0.63 K/mm3 (0.00-0.68); EOSINOPHILS PERCENT AUTO 7 % (0-6); Hematocrit 41.1 % (33.0-51.0); Hemoglobin 13.9 g/dL (11.5-16.0); IMMATURE GRAN ABSOLUTE AUTO 0.02 K/mm3 (0.00-0.10); IMMATURE GRAN PERCENT AUTO 0 % (0-1); LYMPHOCYTES ABSOLUTE AUTO 4.25 K/mm3 (0.84-5.20); LYMPHOCYTES PERCENT AUTO 49 % (21-46); MONOCYTES ABSOLUTE AUTO 0.53 K/mm3 (0.16-1.47); MONOCYTES PERCENT AUTO 6 % (4-13); Mean Corpuscular HGB Conc 33.8 g/dL (31.5-36.5); Mean Corpuscular Volume 84 fL (80-100); NEUTROPHILS ABSOLUTE AUTO 3.07 K/mm3 (1.96-9.15); NEUTROPHILS PERCENT AUTO 36 % (41-73); NRBC ABSOLUTE 0.00 K/mm3 (0.00-0.02); NRBC Auto 0.0 /100 WBC (0.0-0.2); Platelet Count 348 K/mm3 (150-400); RDW Coefficient Variation 12.7 % (11.7-14.2); RDW Standard Deviation 38.6 fL (35.1-46.3)
[2024-10-25 14:50] LABS: Alanine Aminotransfer (ALT/SGP 24.0 U/L (12-78); Albumin, Blood 3.9 g/dL (3.4-5.0); Albumin/Globulin Ratio 0.9 (0.8-1.8); Anion Gap 11.0 mmol/L (3-11); Aspartate Aminotrans (AST/SGOT 21.0 U/L (12-37); Bilirubin, Total 0.6 mg/dL (0.1-1.0); Blood Urea Nitrogen 12.0 mg/dL (8-24); CO2, Blood 21.0 mmol/L (21-32); Calcium, Blood 9.3 mg/dL (8.5-10.1); Chloride, Blood 107.0 mmol/L (98-108); Creatinine, Blood 0.62 mg/dL (0.40-1.00); Globulin, Blood 4.4 g/dL (2.2-4.0); Glucose, Blood 135.0 mg/dL (70-99); Potassium, Blood 4.2 mmol/L (3.5-5.5); Sodium, Blood 135.0 mmol/L (136-145); Total Protein, Blood 8.3 g/dL (6.4-8.2)
[2024-10-25] MEDS ORDERED: BREO ELLIPTA 21 EAC1 INH (15:31)
[2024-10-25] MEDS ORDERED: PREGABALIN50 MG PO (15:32)
[2024-10-25] MEDS ORDERED: Methylin ER10 MG PO (15:32)
[2024-10-25] MEDS ORDERED: TIOTROPIUM BRO18 MCG (15:33)
[2024-10-25] MEDS ORDERED: ALBU90OI INH (16:35)
[2024-10-25 17:00] VITALS: BP 128/82
== END 2024-10-25 17:42 | disposition home or self-care (01) ==
LOC: ER 13:56
PROVIDERS: Student in an Organized Health Care Education/Training Program
DX: J45.901 Unspecified asthma with (acute) exacerbation (principal); K90.0 Celiac disease; G40.909 Epilepsy, unspecified, not intractable, without status epilepticus; Z87.891 Personal history of nicotine dependence; Z91.018 Allergy to other foods; Z88.8 Allergy status to other drugs, medicaments and biological substances; Z79.4 Long term (current) use of insulin; Z79.899 Other long term (current) drug therapy
CPT/HCPCS: 71046; 80053; 84484; 85025; 93005; 93010; 99285-25

== ENCOUNTER 2025-01-23 09:33 | Emergency (ER) | payer MEDICARE, OTHER ==
[~2025-01-23] VITALS: Ht 167.6 cm; Wt 90.7 kg
[~2025-01-23 09:33] MED LIST changes: +BREO ELLIPTA 21 EAC1 INH; +Methylin ER10 MG PO; +PREGABALIN50 MG PO; +TIOTROPIUM BRO18 MCG
[2025-01-23 10:11] VITALS: BP 142/96
== END 2025-01-23 11:16 | disposition home or self-care (01) ==
LOC: ER 09:33
DX: S80.02XA Contusion of left knee, initial encounter (principal); S50.11XA Contusion of right forearm, initial encounter; M25.531 Pain in right wrist; Z88.8 Allergy status to other drugs, medicaments and biological substances; Z79.4 Long term (current) use of insulin; Z79.899 Other long term (current) drug therapy; F43.10 Post-traumatic stress disorder, unspecified; Z87.891 Personal history of nicotine dependence; Y04.8XXA Assault by other bodily force, initial encounter
CPT/HCPCS: 73110; 73562-LT; 99283-25

== ENCOUNTER 2025-03-05 09:46 | Emergency (ER) | payer MEDICARE, OTHER ==
[~2025-03-05] VITALS: Ht 165.1 cm; Wt 78.9 kg
[2025-03-05 09:52] VITALS: BP 129/101
[2025-03-05] MEDS ORDERED: Cleocin HCl150 MG PO (09:58)
[2025-03-05] MEDS ORDERED: Ultram50 MG PO (09:58)
== END 2025-03-05 09:59 | disposition home or self-care (01) ==
LOC: ER 09:46
DX: K04.7 Periapical abscess without sinus (principal); F43.10 Post-traumatic stress disorder, unspecified; J45.909 Unspecified asthma, uncomplicated; Z87.891 Personal history of nicotine dependence; Z79.4 Long term (current) use of insulin; Z79.51 Long term (current) use of inhaled steroids; Z79.899 Other long term (current) drug therapy; Z91.018 Allergy to other foods; Z88.1 Allergy status to other antibiotic agents; Z88.8 Allergy status to other drugs, medicaments and biological substances
CPT/HCPCS: 99282